=== PATIENT | male | born 1990 | race American Indian/Alaskan Native ===

== ENCOUNTER 2019-11-30 14:27 | Emergency (ER) | payer SELFPAY ==
[2019-11-30 14:48] VITALS: BP 127/62
--- NOTE | 2019-11-30 14:48 | Event Note ---
ED Screening Note ED Screening Note: PT COMES TO ER CO ABD PAIN AND BLOOD STOOLS; TAKE ADVIL FOR JOINT PAIN PMH NONE RX PAIN PILL- ADVIL; TAKES DAILY PSH NONE PCP NONE LIVES W FAMILY This initial assessment/diagnostic orders/clinical plan/treatment(s) is/are subject to change based on patients health status, clinical progression and re- assessment by fellow clinical providers in the ED. Further treatment and workup at subsequent clinical providers discretion. Patient/guardian urged not to elope from the ED as their condition may be serious if not clinically assessed and managed. Initial orders include: LABS RECTAL EXAM
== END 2019-11-30 20:55 ==
LOC: ED 14:27
DX: R10.9 Unspecified abdominal pain (principal); Z53.21 Procedure and treatment not carried out due to patient leaving prior to being seen by health care provider